=== PATIENT | female | born 1970 | race Two or more races ===

== ENCOUNTER 2018-03-30 02:23 | Emergency (ER) | payer MEDICAID ==
[~2018-03-30] VITALS: Ht 160 cm; Wt 91.0 kg
[2018-03-30] MEDS ORDERED: albuterol 2.5 MG/3 ML nebule CONTNEB PRN (02:50)
[2018-03-30] MEDS ORDERED: methylPREDNISolone sod succ 125mg/2ml vial IM ONE (02:55)
[2018-03-30 03:18] VITALS: BP 103/63
== END 2018-03-30 04:32 | disposition home or self-care (01) ==
LOC: ER 02:24
DX: J45.909 Unspecified asthma, uncomplicated (principal)
CPT/HCPCS: 71045; 93005; 94644; 96372; 99285; J2930; 94640